=== PATIENT | male | born 1955 | race Caucasian/White ===

== ENCOUNTER 2024-06-23 06:28 | Day surgery (SDC) | payer OTHER ==
[2024-06-19 13:10] VITALS: BMI 29.1
[2024-06-23] MEDS ORDERED: ceFAZolin SODIUM 1 GM VIAL ONE ×2 (07:26→07:29)
[2024-06-23] MEDS ORDERED: ERYTHROMYCIN 0.5% OPHTHALMIC OINTMENT 3.5 GM TUBE ONE (07:26)
[2024-06-23] MEDS ORDERED: LIDOCAINE 1%/EPI 1:100000 (20 ML MULTI DOSE VIAL) ONE (07:27)
[2024-06-23] MEDS ORDERED: POVIDONE-IODINE 5% OPHTHALMIC PREP 30 ML SOLUTION ONE (07:27)
[2024-06-23] MEDS ORDERED: BUPIVACAINE HCL/PF 0.5% (5MG/ML) 10 ML VIAL ONE (07:27)
[2024-06-23] MEDS ORDERED: TETRACAINE 0.5% OPHTH SOLN 2 ML BOTTLE ONE (07:27)
[2024-06-23] MEDS ORDERED: PROPOFOL 40 ML ONE (07:30)
[2024-06-23] MEDS ORDERED: MIDAZOLAM HCL 2 MG/2 ML SINGLE DOSE VIAL ONE (07:30)
[2024-06-23] MEDS ORDERED: DEXAMETHASONE SOD PHOSPHATE 4 MG/1 ML VIAL ONE (08:15)
[2024-06-23] MEDS ORDERED: ONDANSETRON 4 MG/2 ML VIAL ONE (08:15)
[2024-06-23] MEDS ORDERED: PROPOFOL 20 ML ONE (08:21)
[2024-06-23] MEDS ORDERED: ONDANSETRON 4 MG/2 ML VIAL IVPUSH PRN (09:06)
[2024-06-23] MEDS ORDERED: LACTATED RINGERS SOLUTION 1,000 ML IV SCH (09:15)
[2024-06-23 10:32] VITALS: RESP 18; TEMP 97.1
[2024-06-23 10:34] VITALS: BP 139/68; PULSE 59
== END 2024-06-23 10:30 | disposition home or self-care (01) ==
LOC: FASU 06:28
PROVIDERS: ATTEND Ophthalmology
PROC: 0KX10ZZ Transfer Facial Muscle, Open Approach (ICD-10-PCS; 2024-06-23)
PROC: 08BN0ZZ Excision of Right Upper Eyelid, Open Approach (ICD-10-PCS; principal; 2024-06-23 08:04)
DX: C44.102 Unspecified malignant neoplasm of skin of right eyelid, including canthus (principal)
CPT/HCPCS: 88305-TC; 94760